=== PATIENT | male | born 1965 | race Caucasian/White ===

== ENCOUNTER 2022-09-04 08:52 | Day surgery (SDC) | payer BC, SELFPAY ==
--- NOTE | 2022-09-04 09:05 | XR_ITS ---
The [address] [address] Patient Name: LEE STILL JR MRN: [id number] date: 1965 Sex: M Assigned Patient Location: RAD Current Patient Location: RAD Accession/Order Number: [id number] Exam Date: 09/04/2022 09:14 Report Date: 09/04/2022 11:19 At the request of: RUDDY MORALES Procedure: XR foreign body eye Skull x-rays for MRI clearance, 09/04/2022. HISTORY: Evaluate for foreign body prior to MRI. Comparison: None. FINDINGS: AP and lateral views of the orbits obtained. No metallic foreign body identified in the orbits. No intracranial metallic foreign body. IMPRESSION: No metallic foreign body identified that would prevent the patient from having an MRI. Electronically authenticated by: ERWIN DURANT Date: 09/04/2022 11:19
--- NOTE | 2022-09-04 09:06 | MR_ITS ---
[address] [address] Patient Name: LEE STILL JR MRN: [id number] date: 1965 Sex: M Assigned Patient Location: [facility] Current Patient Location: [facility] Accession/Order Number: [id number] Exam Date: 09/04/2022 10:20 Report Date: 09/04/2022 13:14 At the request of: RUDDY MORALES Procedure: MR arthogram hip EXAM: MR arthogram hip HISTORY: Acute right hip pain M25.551 COMPARISON: None. TECHNIQUE: Following intra-articular injection of contrast, multi planar, multisequence MR imaging of the right hip was performed. Findings: Bones and cartilage: No acute fracture or malalignment. No acetabular retroversion. The alpha angle cannot be calculated as no oblique imaging to the femoral neck was performed. No focal bone marrow edema. Mild hip joint osteoarthritis. No full-thickness cartilage defect. No articular erosions. Muscles and tendons: No abnormal signal within the visualized musculature. The iliopsoas, gluteal and hamstring tendons are intact. Ligaments: The ligamentum teres is intact. There is a partial thickness tear of the superior labrum. Miscellaneous: No bursa. IMPRESSION: 1. Torn superior labrum. Electronically authenticated by: SHWETHA MEDRANO Date: 09/04/2022 13:14
[2022-09-04] MEDS: TRIAMCINOLONE ACETONIDE 40 MG/ML VIAL INJ (10:00)
[2022-09-04] MEDS: LIDOCAINE HCL 15 ML, SODIUM BICARBONATE 2 MEQ INJ (10:00)
--- NOTE | 2022-09-04 10:20 | FL_ITS ---
[address] [address] Patient Name: LEE STILL JR MRN: [id number] date: 1965 Sex: M Assigned Patient Location: [facility] Current Patient Location: [facility] Accession/Order Number: [id number] Exam Date: 09/04/2022 09:25 Report Date: 09/04/2022 11:16 At the request of: RUDDY MORALES Procedure: FL hip inj RT EXAMINATION: FL hip inj RT HISTORY: Right hip pain COMPARISON: No relevant comparison available. FLUOROSCOPY TIME: Fluoro time measures 2 minutes 5 seconds and 4 images were obtained. TECHNIQUE: A joint injection was performed in the usual sterile manner after obtaining informed consent. Standard level fluoroscopic mode of operation utilized. FINDINGS: JOINT: Right hip. NEEDLE: 22 gauge, 3.5 spinal needle. MEDICATION: 8cc buffered 1% lidocaine for subcutaneous anesthesia Mixture of Kenalog 40 mg, 5 mL 1% lidocaine, Omnipaque 300 5 mL was injected into the joint space. TECHNIQUE: Anterior approach with prior localization of the femoral artery. A single stick was successful in gaining access to the joint space. CLINICAL: Preprocedure pain 4 out of 10. Postprocedure pain 0 out of 10 COMPLICATIONS: None. OTHER: Negative. IMPRESSION: Technically successful right hip diagnostic arthrogram Electronically authenticated by: GUMARO GONCALVES Date: 09/04/2022 11:16
== END 2022-09-04 10:20 | disposition home or self-care (01) ==
LOC: RAD 09:00
PROVIDERS: Radiology Diagnostic Radiology; PCP Nurse Practitioner Family; Visit Provider Personal Emergency Response Attendant
DX: M25.551 Pain in right hip (principal); S73.191A Other sprain of right hip, initial encounter
CPT/HCPCS: 20610; 27093; 70030; 73722; 77002; A9575; Q9967